=== PATIENT | male | born 2000 | race Caucasian/White ===

== ENCOUNTER 2025-01-25 11:45 | Inpatient (IN) | payer OTHER ==
[~2025-01-25] VITALS: Ht 180.3 cm; Wt 82.9 kg
[2025-01-25 12:52] LABS: HEMATOCRIT 46.5 % (42.0-52.0); HEMOGLOBIN 16.1 g/dl (13.5-17.5); MEAN CORPUSCULAR HEMOGLOBIN 32.7 pg (27.0-33.0); MEAN CORPUSCULAR HGB CONC 34.6 g/dl (32.0-36.5); MEAN CORPUSCULAR VOLUME 94.5 fl (80.0-96.0); PLATELET COUNT, AUTOMATED 289 10^3/uL (150-450); RED BLOOD COUNT 4.92 10^6/uL (4.30-6.10); WHITE BLOOD COUNT 5.7 10^3/uL (4.0-10.0)
[2025-01-25 13:09] LABS: ETHYL ALCOHOL (ETHANOL) 0.021 % (0.000-0.010)
[2025-01-25 13:10] LABS: THYROID STIMULATING HORMONE 0.621 uIU/ML (0.55-4.78)
[2025-01-25 13:11] LABS: ALBUMIN 4.2 G/DL (3.2-5.2); ALKALINE PHOSPHATASE 99 U/L (40-129); ALT/SGPT 20 U/L (7.0-40); AST/SGOT 20 U/L (<34); BILIRUBIN,DIRECT 0.2 MG/DL (<0.4); BILIRUBIN,TOTAL 0.8 MG/DL (0.3-1.2); BLOOD UREA NITROGEN 10 MG/DL (9-23); CALCIUM LEVEL 9.3 MG/DL (8.5-10.1); CARBON DIOXIDE LEVEL 23 MMOL/L (20-31); CHLORIDE LEVEL 108 MMOL/L (98-107); CREATININE FOR GFR 0.93 MG/DL (0.70-1.30); GLOMERULAR FILTRATION RATE > 60.0 (>60); GLUCOSE, FASTING 81 MG/DL (60-100); POTASSIUM SERUM 4.3 MMOL/L (3.5-5.1); SALICYLATE LEVEL < 3.0 MG/DL (<30); SODIUM LEVEL 143 MMOL/L (136-145); TOTAL PROTEIN 7.5 G/DL (5.7-8.2)
[2025-01-25 13:17] LABS: AMPHETAMINES LEVEL URINE NEGATIVE (NEGATIVE); BARBITURATES URINE NEGATIVE (NEGATIVE); BENZODIAZEPINES URINE NEGATIVE (NEGATIVE); CANNABINOIDS URINE NEGATIVE (NEGATIVE); COCAINE METABOLITE URINE NEGATIVE (NEGATIVE); METHADONE URINE NEGATIVE (NEGATIVE); OPIATES URINE NEGATIVE (NEGATIVE); PHENCYCLIDINE URINE NEGATIVE (NEGATIVE)
[2025-01-25] MEDS: ACETAMINOPHEN 325 MG TAB PO ONE (13:29)
[2025-01-25] MEDS ORDERED: HOME MED LIST COMPLETE! XX SCH (13:40)
[2025-01-25] MEDS ORDERED: IBUPROFEN 400MG TAB PO PRN (17:35)
[2025-01-25] MEDS ORDERED: diphenhydrAMINE 25MG CAP PO PRN (17:35)
[2025-01-25] MEDS ORDERED: MAALOX 30 ML SUSP *UDC PO PRN (17:35)
[2025-01-25] MEDS ORDERED: MOM 30ML SUSPENSION UDC PO PRN (17:35)
[2025-01-25] MEDS ORDERED: ACETAMINOPHEN 325 MG TAB PO PRN (17:35)
[2025-01-25] MEDS ORDERED: traZODone 50 MG TAB PO PRN (17:35)
[2025-01-26] MEDS: ESCITALOPRAM OXALATE 10 MG TAB (LEXAPRO) PO SCH (15:03)
[2025-01-26] MEDS: NICOTINE 21MG/24HR 1 EA TRANSDERMAL TD SCH (15:15)
[2025-01-26 15:17] VITALS: BP 130/86; TEMP 97.7; O2SAT 100
[2025-01-27 06:14] VITALS: BP 136/75; TEMP 98.6; O2SAT 98
[2025-01-28 06:40] VITALS: BP 141/67; TEMP 97.6; O2SAT 100
[2025-01-28] MEDS ORDERED: LEXA1TAB PO (08:23)
== END 2025-01-28 11:06 | disposition home or self-care (01) | DRG 881 ==
LOC: M ED 11:45 → M ED INP 17:35 → M PSY 01-26 08:42
PROVIDERS: ADMIT Student in an Organized Health Care Education/Training Program; ATTEND Student in an Organized Health Care Education/Training Program
DX: F32.9 Major depressive disorder, single episode, unspecified (principal); R45.851 Suicidal ideations; F90.9 Attention-deficit hyperactivity disorder, unspecified type; F17.200 Nicotine dependence, unspecified, uncomplicated; M54.50 Low back pain, unspecified; G89.29 Other chronic pain; Z91.51 Personal history of suicidal behavior